=== PATIENT | male | born 1995 | race African-American/Black ===

== ENCOUNTER 2020-12-01 15:35 | Emergency (ER) | payer BC, SELFPAY ==
[2020-12-01 15:46] VITALS: BP 124/81; PULSE 78; RESP 16; TEMP 36.7; O2SAT 99
--- NOTE | 2020-12-01 16:02 | ED.ABDPAIN ---
HPI - Abdominal Pain General Chief Complaint: Abdominal Pain Stated Complaint: abd pain Time Seen by Provider: 12/01/20 15:50 Source: patient Mode of arrival: ambulatory Limitations: no limitations History of Present Illness HPI narrative: Jesse Johnson is a 24 yo male with no PMH who comes to [facility] with complaints of midline abdominal pain that is about 3-4 out of 10 currently but when lies down it gets as high as 8 or 9 out of 10. He has not eaten in the last 2 days because he says it gets worse with eating. States he has tried Pepto-Bismol and ibuprofen with no relief; denies vomiting says the pain feels like a knot that with occasional feeling nauseated Related Data Allergies Allergy/AdvReac Type Severity Reaction Status Date / Time PEANUTS Allergy Severe Swelling Uncoded 12/01/20 15:52 Review of Systems Review of Systems: Narrative: CONSTITUTIONAL: Denies fever, chills, sweats. EYES: Denies visual changes, redness, discharge. ENT: Denies rhinorrhea, congestion, sore throat, otalgia. CARDIOVASCULAR: Denies chest pain, palpitations, edema. RESPIRATORY: Denies dyspnea, wheezing, cough GASTROINTESTINAL: Denies abdominal pain, nausea, vomiting, diarrhea. Mid abdominal pain that goes up into the epigastric region GENITOURINARY: Denies dysuria, hematuria, abnormal discharge SKIN: Denies rash or itching. NEUROLOGIC: Denies numbness, or focal weakness. PSYCHIATRIC: Denies anxiety or depression. PMFSH Past Medical History Medical History ADHD Asthma Eczema Surgical History Surgical History H/O adenoidectomy Hx of tonsillectomy Social History Social History Gender identity (if verbalized by the patient): Male Comments At time of signature, I agree with nursing past medical, surgical, social and family history. There is no relevant family history pertinent to the presenting complaint. Exam Narrative: Exam Narrative: GENERAL: This is a well-nourished, well-developed patient, in moderate distress. HEAD: normocephalic, atraumatic. EYES: Sclera clear/white. Vision is grossly intact. EARS: External ears normal, . Hearing grossly intact. NOSE: External nose normal without nasal discharge, nares without redness, no rhinorrhea. THROAT: Mucous membranes moist, NECK: Neck supple, CARDIOVASCULAR: Regular rate and rhythm without murmurs, gallops, or rubs. RESPIRATORY: Clear to auscultation. Breath sounds equal bilaterally. No wheezes, rales, or rhonchi. GASTROINTESTINAL: Abdomen soft, mild tenderness mid epigastric region no rebound tenderness right lower quadrant, good bowel sounds, generally negative abdominal exam SKIN: warm, intact with no suspicious lesions or rash, good texture and turgor. NEURO: awake, alert, and oriented to person, place and time. There were no obvious focal neurologic abnormalities. Steady gait EXTREMITIES: Normal range of motion. BACK: Nontender without deformity Course Course Emergency Course: Patient came [facility] complaining of abdominal pain particularly epigastric region Is of need for blood work and potential scanning had patient call primary care doctor to see if he can get an appoint with some are patient sent to the ER. PCP will see him tomorrow at 3 PM and I will give him a trial of Protonix that will be dose tonight and tomorrow morning to see if it has any effect on the pain. Patient is soft diet continue to drink liquids. Avoid ibuprofen Vital Signs Vital signs: Vital Signs Temperature 98.0 F 12/01/20 15:46 Pulse Rate 78 12/01/20 15:46 Respiratory Rate 16 12/01/20 15:46 Blood Pressure 124/81 12/01/20 15:46 Pulse Oximetry 99 12/01/20 15:46 Temperature 98.0 F 12/01/20 15:46 Pulse Rate 78 12/01/20 15:46 Respiratory Rate 16 12/01/20 15:46 Blood Pressure 124/81 12/01/20 15:46
== END 2020-12-01 16:13 | disposition home or self-care (01) ==
PROVIDERS: Emergency Provider Nurse Practitioner
DX: R10.13 Epigastric pain (principal)
CPT/HCPCS: 99213; G0463

== ENCOUNTER 2021-01-16 21:15 | Emergency (ER) | payer SELFPAY ==
[2021-01-16 21:20] VITALS: BP 137/65; PULSE 137; RESP 22; TEMP 37.2; O2SAT 94
--- NOTE | 2021-01-16 21:58 | ED.ALLEREA ---
HPI - Allergic Reaction General Chief complaint: Allergic Reaction Stated complaint: hives, sob Time Seen by Provider: 01/16/21 21:51 Source: patient Mode of arrival: ambulatory Limitations: no limitations History of Present Illness HPI narrative: 25-year-old male History of asthma Then tonight after having an allergic reaction to something, may be peanuts that he may have unknowingly consumed He does not have facial swelling hoarseness or stridor However he did have generalized pruritus of his upper body and may be some urticaria, uses inhaler for wheezing with good relief, and may have had what he describes as a panic attack which she was going to take Benadryl for but friends brought him to the ER He currently has only some mild pruritus and is actually resting pretty comfortably Related Data Allergies Allergy/AdvReac Type Severity Reaction Status Date / Time PEANUTS Allergy Severe Swelling Uncoded 01/16/21 21:37 Review of Systems Review of Systems: All systems reviewed & are unremarkable except as noted in HPI and below Constitutional: Constitutional: Reports no additional constitutional complaints, Denies chills, Denies fever(s) and Denies headache(s) Eyes: Eyes: Reports no additional eye complaints and Denies change in vision ENT: Denies headache(s), Reports nasal congestion and Denies sore throat Cardiovascular: Cardiovascular: Denies chest pain and Denies dyspnea Respiratory: Respiratory: Denies cough, Denies dyspnea and Reports wheezing Gastrointestinal: Gastrointestinal: Denies diarrhea and Denies vomiting Musculoskeletal: Musculoskeletal: Denies deformity and Denies numbness Integumentary/Breasts: Skin/Breast: Reports pruritus, Reports rash and Denies wounds Neurologic: Denies headache(s) Psychiatric: Psychiatric: Reports no additional psychiatric complaints Endocrine: Endocrine: Reports no additional endocrine complaints Hematologic/Lymphatic: Hematologic/Lymphatic: Reports no additional hematologic/lymphatic complaints Allergic/Immunologic: Allergic/Immunologic: Reports no additional allergic/immunologic complaints PMFSH Past Medical History Medical History ADHD Asthma Eczema Surgical History Surgical History H/O adenoidectomy Hx of tonsillectomy Social History Social History Gender identity (if verbalized by the patient): Male Exam Const: General: healthy appearing, no acute distress and alert Orientation/consciousness: patient oriented x3 HENMT: Head: normal to inspection Mouth: Yes Normal oral and palatal mucosa present and Yes moist mucous membranes Eyes: Conjunctivae: conjunctivae normal EOM: EOMs intact bilaterally Neck: Neck: normal visual inspection Resp: Effort & Inspection: normal respiratory effort Auscultation: clear to auscultation bilaterally and no wheezes Cardio: Rate: regular rate Rhythm: regular rhythm Skin: Other: Patchy faintly erythematous rash on torso Neuro: General: patient oriented x3 Course Course Emergency Course: After treatment his symptoms improved he was watched for about additional hour and 1/2 to 2 hours with no recurrence and felt very good about going home Vital Signs Vital signs: Vital Signs Temperature 37.2 C 01/16/21 21:20 Pulse Rate 137 H 01/16/21 21:20 Respiratory Rate 22 H 01/16/21 21:20 Blood Pressure 137/65 01/16/21 21:20 Pulse Oximetry 94 01/16/21 21:20 Temperature 37.2 C 01/16/21 21:20 Pulse Rate 98 01/16/21 22:23 Respiratory Rate 22 H 01/16/21 22:23 Blood Pressure 137/65 01/16/21 21:20 Pulse Oximetry 94 01/16/21 21:20 Discharge Plan Discharge Clinical Impression: Allergic reaction Patient Disposition: Home, Self-Care Condition: Improved Instructions: General Allergic Reaction (ED) Additional
[2021-01-16] MEDS: diphenhydrAMINE HCl INJ 50 MG/ML VIAL IV PUSH (22:12)
[2021-01-16] MEDS: FAMOTIDINE 20 MG/2 ML VIAL 40 MG IV PUSH (22:16)
[2021-01-16] MEDS: ALBUTEROL SULFATE (*SP) AEROSOL 1 PUFF 4 PUFF INHALATION (22:21)
[2021-01-16 22:23] VITALS: PULSE 98; RESP 22
[2021-01-16 23:59] VITALS: BP 108/67; PULSE 100; RESP 16; O2SAT 98
== END 2021-01-16 23:59 | disposition home or self-care (01) ==
PROVIDERS: Emergency Provider Emergency Medicine
DX: T78.40XA Allergy, unspecified, initial encounter (principal); F90.9 Attention-deficit hyperactivity disorder, unspecified type; J45.909 Unspecified asthma, uncomplicated; L30.9 Dermatitis, unspecified
CPT/HCPCS: 94640; 96374; 96375; 99284; A9270; J1100; J1200

== ENCOUNTER 2021-11-15 13:48 | Emergency (ER) | payer OTHER, SELFPAY ==
[2021-11-15 13:58] VITALS: BP 142/98; PULSE 82; RESP 16; TEMP 37.2; O2SAT 99
--- NOTE | 2021-11-15 14:10 | ED.EYEPROB ---
HPI - Eye Problem General Chief complaint: Eye Problems Stated complaint: Swollen Left Eye Time Seen by Provider: 11/15/21 14:10 Source: patient and RN notes reviewed Mode of arrival: ambulatory Limitations: no limitations History of Present Illness HPI Narrative: 25-year-old male presents to the [facility] with complaints of left upper eyelid swelling. States it was perfectly normal yesterday, woke up this morning with the swelling. No change in vision or blurry vision. States he does have a eye doctor and will follow up. Swelling he noticed this morning when he woke up. No treatment prior to arrival Related Data Allergies Allergy/AdvReac Type Severity Reaction Status Date / Time PEANUTS Allergy Severe Swelling Uncoded 11/15/21 13:56 Review of Systems Review of Systems: All systems reviewed & are unremarkable except as noted in HPI and below Constitutional: Constitutional: Reports no additional constitutional complaints, Denies chills and Denies fever(s) Eyes: Eyes: Reports as per HPI, Denies change in vision, Reports irritation, Reports requires corrective lenses (Wears glasses), Denies photophobia and Reports other (Swelling left upper lid) ENT: Reports system reviewed and no additional complaints, except as documented Cardiovascular: Cardiovascular: Reports no additional cardiovascular complaints Respiratory: Respiratory: Reports no additional respiratory complaints Gastrointestinal: Gastrointestinal: Reports no additional gastrointestinal complaints Musculoskeletal: Musculoskeletal: Reports no additional musculoskeletal complaints Integumentary/Breasts: Skin/Breast: Reports system reviewed and no additional complaints, except as docu Neurologic: Reports system reviewed and no additional complaints, except as documented Psychiatric: Psychiatric: Reports no additional psychiatric complaints Allergic/Immunologic: Allergic/Immunologic: Reports no additional allergic/immunologic complaints [facility] Past Medical History Medical History ADHD Asthma Eczema Surgical History Surgical History H/O adenoidectomy Hx of tonsillectomy Social History Social History Gender identity (if verbalized by the patient): Male Comments At the time of my signature, I reviewed and agree with the nursing past medical, surgical, social, and family history. There is no relevant family history pertinent to the patient complaint. Exam Const: General: healthy appearing, no acute distress and alert Nutritional Appearance: well nourished Orientation/consciousness: patient oriented x3 Limitations: no limitations HENMT: Head: normal to inspection Ears: external ears normal Eyes: General: appearance normal, both eyes and all related structures Eyelids: eyelid abnormality left upper eyelid inflamed cyst, erythema, swelling and tenderness; no crusting or scaling of lid margins Conjunctivae: conjunctivae normal Pupils: Equal, round and reactive pupils present Neck: Neck: normal visual inspection, no lymphadenopathy and no meningeal signs Chest: Chest palpation & inspection: normal inspection of the chest Resp: Effort & Inspection: normal respiratory effort and no use of accessory muscles Auscultation: clear to auscultation bilaterally, no crackles, no rales, no rhonchi and no wheezes Cardio: Rate: regular rate Rhythm: regular rhythm Back/Spine/Pelvis: Cervical Spine: normal cervical lordosis Thoracic/Lumbar Spine: thoracic and lumbar spine normal to inspection Skin: General skin exam: normal color Rashes: no rashes Wounds: no wounds Neuro: General: patient oriented x3, moves all extremities, no meningeal signs and no focal motor deficits Cranial nerves: Yes Equal, round and reactive pupils present Speech: normal speech Gait exam (Neuro): Normal gait present Ext
== END 2021-11-15 14:37 | disposition home or self-care (01) ==
PROVIDERS: Emergency Provider Nurse Practitioner
DX: H00.014 Hordeolum externum left upper eyelid (principal); J45.909 Unspecified asthma, uncomplicated
CPT/HCPCS: 99213; G0463